=== PATIENT | female | born 2000 ===

== ENCOUNTER → 2018-02-09 13:28 | Outpatient (REF) | payer BC, SELFPAY ==
[2018-02-09 13:48] LABS: Add Manual Diff / Slide Review NO; Basophils Percent Auto 0.6 % (0-2); Eosinophils Percent Auto 3.4 % (2-4); Hematocrit 42.6 % (36-46); Hemoglobin 14.3 g/dL (12.0-16.0); Mean Corpuscular HGB Conc 33.6 % (30-36); Mean Corpuscular Hemoglobin 28.6 PG (26-34); Mean Corpuscular Volume 85.2 fL (80-100); Monocytes Percent Auto 8.5 % (3-14); Neutrophils Absolute Auto 3200 /uL (3000-5900); Neutrophils Percent Auto 53.5 % (50-75); Platelet Count 297 X10^3/uL (150-400); Red Cell Distribution Width 13.8 % (11.6-14.8)
[2018-02-09 14:37] LABS: Alanine Aminotransferase 18 IU/L (9-52); Albumin 4.8 g/dL (3.5-5.0); Albumin Globulin Ratio 1.9 (1.0-2.8); Alkaline Phosphatase 50 U/L (38-126); Aspartate Aminotransferase 20 IU/L (14-36); Bilirubin Total 0.4 mg/dL (0.2-1.3); Blood Urea Nitrogen 14 mg/dL (7-17); Calcium 9.7 mg/dL (8.4-10.2); Carbon Dioxide 29 mmol/L (22-32); Chloride 104 mmol/L (98-107); Cholesterol 132 mg/dL (140-199); Estimated Glomerular Filt Rate > 60.0 mL/min (>60); Globulin 2.5 g/dL (1.7-4.1); Glucose 88 mg/dL (70-100); HDL Cholesterol 53 mg/dL (40-60); HEMOLYSIS < 15 (0-50); LDL Cholesterol Calculated 63 mg/dL (<100); Potassium 5.3 mmol/L (3.4-5.1); Sodium 145 mmol/L (137-145); Total Protein 7.3 g/dL (6.3-8.2); Triglycerides 78 mg/dL (35-150)
[2018-02-09 14:55] LABS: T4 Total Thyroxine 7.62 ug/dL (5.5-11.0); T7 (Free Thyroxine Index) 2.26 (1.65-3.89); Triiodothryronine T3 Uptake 29.7 % (23.5-40.5)
[2018-02-09 15:08] LABS: Thyroid Stimulating Hormone 2.35 uIU/mL (0.47-4.68)
== END ==
LOC: LAB 13:28
PROVIDERS: Visit Provider Specialist
DX: K59.00 Constipation, unspecified (principal); M27.2 Inflammatory conditions of jaws; E78.5 Hyperlipidemia, unspecified
CPT/HCPCS: 80053; 80061; 84436; 84443; 84479; 85025

== ENCOUNTER → 2018-08-22 18:55 | Outpatient (REF) | payer BC, SELFPAY ==
[2018-08-22 20:25] LABS: HIV 1 and 2 Antibody NEGATIVE (NEGATIVE); Hep C Virus Ab w/Reflex Quant NEGATIVE s/c (NEGATIVE)
[2018-08-22 20:55] LABS: Urine N gonorrhoeae NOT DETECTED
[2018-08-22 21:08] LABS: Urine Chlamydia NOT DETECTED
[2018-08-24 12:57] LABS: HSV 2 IGG AB < 0.90 index (< 0.90); HSV1IGG < 0.90 index (< 0.90)
[2018-08-24 15:07] LABS: RPR Screen Nonreactive (Nonreactive)
== END ==
LOC: LAB 18:55
PROVIDERS: Family Medicine; Visit Provider Specialist
DX: Z11.3 Encounter for screening for infections with a predominantly sexual mode of transmission (principal); Z11.4 Encounter for screening for human immunodeficiency virus [HIV]
CPT/HCPCS: 86592; 86695; 86696; 86703; 86803; 87491; 87591

== ENCOUNTER → 2018-11-15 13:41 | Outpatient (ROUT) | payer BC, SELFPAY ==
[2018-11-17 11:47] LABS: Mumps Virus IgG Antibody < 9.00 AU/mL (< 9.00)
== END ==
PROVIDERS: Visit Provider Family Medicine
DX: B34.9 Viral infection, unspecified (principal)
CPT/HCPCS: 36415; 86735